=== PATIENT | female | born 1990 | race Caucasian/White ===

== ENCOUNTER 2016-06-18 13:36 | Emergency (ER) | payer MEDICAID ==
[~2016-06-18] VITALS: Ht 154.9 cm; Wt 68.0 kg
[2016-06-18 13:36] VITALS: BP 128/92; PULSE 84; RESP 19; TEMP 97.2; O2SAT 100
--- NOTE | 2016-06-18 13:36 | NUR ---
BROUGHT BACK TO BED #5 AND TRIAGED. REPORT GIVEN TO DELANEY
--- NOTE | 2016-06-18 13:45 | NUR ---
ER at bedside examining patient.
--- NOTE | 2016-06-18 13:50 | NUR ---
Pt presesnt to ED c/o R knee pain and L henriquez LAC s/p mech fall at work.Pt denies significant med hx. Pt unable to bear full weight on affect knee.
[2016-06-18] MEDS ORDERED: IBUPROFEN 600 MG TABLET PO ONE (14:00)
--- NOTE | 2016-06-18 14:25 | NUR ---
Pt medciated tolerated well.
[2016-06-18 14:43] VITALS: BP 120/88; PULSE 84; RESP 20; TEMP 97.2; O2SAT 100
--- NOTE | 2016-06-18 14:43 | NUR ---
Patient given written and verbal discharge instructions and verbalizes understanding. ER MD discussed with patient the results and treatment provided. Given copies of tests performed in ER. Patient in stable condition. ID arm band removed. Rx of motrin given. Patient educated on pain management and to follow up with PMD. Pain Scale 2. Opportunity for questions provided and answered.
== END 2016-06-18 14:43 | disposition home or self-care (01) ==
LOC: SED 13:36
DX: M25.561 Pain in right knee (principal); W01.0XXA Fall on same level from slipping, tripping and stumbling without subsequent striking against object, initial encounter; Y93.89 Activity, other specified; Y92.89 Other specified places as the place of occurrence of the external cause; Y99.8 Other external cause status
CPT/HCPCS: 73564; 81025; 99284